=== PATIENT | female | born 1945 | race Caucasian/White ===

== ENCOUNTER → 2017-03-01 | Outpatient (CLI) | payer MEDICARE ==
[~2017-03-01] MED LIST: ALBUTEROL 3 ML 33 ML INH; ATROVENT I0.5 MG/2.5 INH; AUGMENTIN 875875 MG PO; CLARINEX-D12 HO1 T12 PO; CLARITIN10 MG PO; DOXYCYCLINE100 MG PO; DUONEB 3 MG/3 ML3 M1 INH; KROGER NIC21 MG/24 H T; LEVAQUIN500 M2 PO; MEDROL4 MG PO; MOTRIN800 MG PO; MUCINEX ER600 MG PO; NEBULIZER; PREDNISONE10 MG PO; RESTORIL15 MG PO; SINGULAIR10 MG PO; SPIRIVA RESPIMAT4 GM INH; SYMBICORT1 AE1 INH; TAMIFLU 75MG CA75 MG PO; TESSALON PERLE100 MG PO; VENTOLIN H0.09 MG/AC INH; VICODIN 5/500 505 MG PO
== END | disposition home or self-care (01) ==
LOC: MAMMO 11:26
DX: Z12.31 Encounter for screening mammogram for malignant neoplasm of breast (principal)

== ENCOUNTER 2017-09-30 07:59 | Inpatient (IN) | payer MEDICARE ==
[~2017-09-30] VITALS: Ht 172.7 cm; Wt 55.5 kg
--- NOTE | ~2017-09-30 | WRIGHTHP ---
[place], [place] PATIENT HISTORY AND PHYSICAL EXAM NAME: KASSY JAUREGUI UNIT #: [id number] ROOM: 415 DOCTOR: SATHISH JESUS MD BIRTHDATE: [birth year] DOS: 09/30/2017 HISTORY OF PRESENT ILLNESS: The patient is a 72-year-old female with a past medical history of: 1. COPD and continued nicotine abuse. 2. Nicotine smoke dependence. The patient smokes 1-2 packs of cigarettes a day. 3. History of GERD and esophagitis. 4. COPD. 5. POLLEN allergies. The patient presented to the Emergency Department with acute dizziness and vertigo starting yesterday morning. The patient said she has had this episode many years ago, but not recently. The patient felt nauseous and the room was spinning around her and she had difficulty with walking. The patient felt nauseous, but no vomiting. No chest pain or shortness of breath. No other GI or urinary symptoms. No fever. REVIEW OF SYSTEMS: LUNGS: No increasing shortness of breath. GASTROINTESTINAL: The patient did have nausea. CARDIOVASCULAR: No chest pains or palpitations. LABORATORY DATA: CT of the head without acute abnormality. CT of the abdomen and pelvis without any acute abnormality. Normal serum electrolytes. Normal CBC. IMPRESSION: 1. The patient presenting with acute vertigo and nausea, which is improving, but she still gets very dizzy off and on and is unable to ambulate with the dizziness. Antivert is helping her, but not enough. I will increase the dose and get her to work with Physical Therapy. 2. Benign positional vertigo, being treated as mentioned above. 3. Ambulatory dysfunction secondary to vertigo. The patient is working with Physical Therapy. 4. Advanced centrilobular emphysema with continued nicotine smoke dependence. The patient is on bronchodilators. 5. POLLEN allergies, treated with Singulair, asymptomatic at this time. 6. Nicotine smoke dependence. The patient encouraged to stop smoking cigarettes. [place], [place] PATIENT HISTORY AND PHYSICAL EXAM NAME: KASSY JAUREGUI UNIT #: [id number] ROOM: 415 DOCTOR: SATHISH JESUS MD BIRTHDATE: [birth year] SATHISH JESUS MD CM:HISPHYS:PATIENT HISTORY AND PHYSICAL EXAMINATION 1535 1559 SATHISH JESUS MD 10/01/17 1559 interface
--- NOTE | ~2017-09-30 | CON ---
[place], [place] REPORT OF CONSULTATION [id number] UN[facility] #: [id number] ROOM: 415 DOCTOR: ADOLFO VENEGAS MD BIRTHDATE: [birth year] DOS: 10/01/2017 GASTROENDOSCOPIC REPORT HISTORY OF PRESENT ILLNESS: A 72-year-old patient who presented with a chief complaint of nausea associated with lightheadedness and dizziness. The patient has relevant history of right ear drum perforation, which is known and she is not on any medication to be the cause of the lightheadedness and she is a pack and half smoker otherwise. She had a panel of blood work done, white blood cell was 8 and H and H of 13 and 41. Comprehensive metabolic panel, glucose 114 and GFR greater than 30. Liver function test, comprehensive metabolic panel, and all chemistry normal. Chest x-ray, no acute findings. CT scan of the head was done, no intracranial hemorrhage was reported. CT scan of the abdomen and pelvis was done, no acute inflammatory pathology, large left renal cyst. PAST MEDICAL HISTORY: Associated with COPD, gastroesophageal reflux, hypertension, and anxiety. PAST SURGICAL HISTORY: Cataract bilateral and tubal ligation. SOCIAL HISTORY: Smoker, a pack and half. Nonalcohol consumer. FAMILY HISTORY: Noncontributory. ALLERGIES: ZITHROMAX. HOME MEDICATIONS: Although, she is telling me she is not on any medication; apparently, on Tamiflu, DuoNeb, Restoril, and nebulizers. REVIEW OF SYSTEMS: HEENT: Denies double vision or blurred vision. Admits dizziness. No double vision. Right ear trauma to tympanic membrane and perforation is known. RESPIRATORY: Denies acute shortness of breath; however, chronically short of breath, issues of nicotine dependency. CARDIOVASCULAR: Denies chest pain. DIGESTIVE SYSTEM: History of gastroesophageal reflux and nausea presently. PHYSICAL EXAMINATION: VITAL SIGNS: Stable. HEENT: Head is normocephalic and nontraumatic. Eyes: Pupils are round and reactive. Sclerae nonicteric. Conjunctivae pink. NECK: Supple. No thyromegaly. No cervical lymphadenopathy. EARS: Right tympanic membrane has a perforation, which is established. LUNGS: No wheeze. No rhonchi. In general, there is decreased air entry. HEART: Normal sinus rhythm. No gallop. No murmur. ABDOMEN: Soft. No hepato-organomegaly. Bowel sounds present. No pulsatile mass. EXTREMITIES: No cyanosis. No pedal edema. NEUROLOGIC: Alert and oriented to time, place, and person. [place], [place] REPORT OF CONSULTATION NAME: KASSY JAUREGUI UNIT #: [id number] ROOM: 415 DOCTOR: ADOLFO VENEGAS MD BIRTHDATE: [birth year] IMPRESSION: Dizziness, vertigo, chronic obstructive pulmonary disease, reflux, nausea, and history of hypertension. I am not convinced if her vertigo is to a degree that we have to treat her with very large doses of Antivert and she is telling me that she is not nauseated and although she is admitting that initially she had nausea and most likely secondary to her vertigo experienced. PLAN AND DISCUSSION: I would recommend follow up with Neurology service as outpatient and she is not acutely distressed right now and I will still be considered about dysequilibrium that exists because of the perforated right tympanic membrane and she has got to a point where she is compensated. Supportive management otherwise. I have questioned her and daughter at the bedside regarding colonic screening; apparently, she is not keen in medical followups and she is proud that she has not been seen a doctor. Thank you very much indeed. ADOLFO VENEGAS MD CM:CONSTR:REPORT OF CONSULTATION 1841 10/02/17 0311 interface
--- NOTE | ~2017-09-30 | DS ---
[place], [place] DISCHARGE SUMMARY NAME: KASSY JAUREGUI UNIT #: [id number] ROOM: 415 DOCTOR: SATHISH JESUS MD BIRTHDATE: [birth year] DOS: 10/02/2017 DISCHARGE DIAGNOSES: 1. Acute benign positional vertigo with inability to ambulate, improved with treatment. 2. Nicotine smoke dependence, 1 to 2 packs of cigarettes a day. 3. Gastroesophageal reflux disease and esophagitis. 4. Chronic obstructive pulmonary disease. 5. POLLEN allergies. HOSPITAL COURSE: The patient presented to the Emergency Department with acute dizziness and vertigo along with nausea starting on the day of admission. The patient was unable to ambulate and she lives at home. The patient was also nauseous. The patient felt the room spinning around her and was unable to walk, but there was no vomiting. The patient admitted and CAT scan of her head showed no acute abnormality. The patient admitted and started on physical therapy and she had episodes of dizziness, but she gradually improved as the dose of Antivert was increased. The patient appears to be better enough that she can be discharged to home today on Antivert and to be followed up at the office by Dr. Khushboo Amaya, her PCP next week. Nicotine smoke dependence with patient smoking 1-2 packs of cigarettes a day. The patient encouraged to stop and he has agreed and she will use e-cigarettes as needed instead of smoking cigarettes. The patient says she had stopped smoking for 9 months in the past and she will try again. Centrilobular emphysema with chronic shortness of breath, stable, related to smoking cigarettes. POLLEN allergies, treated and controlled. GERD and esophagitis, treated and controlled and asymptomatic LABORATORY DATA: CT of the abdomen and head were normal. Normal serum electrolytes. Normal bilirubin and liver enzymes. DISCHARGE MANAGEMENT: Meclizine 50 mg 3 times a day as needed for dizziness, Singulair 10 mg a day, albuterol inhaler as needed, DuoNeb as needed, vitamin D as prescribed, Claritin 10 mg a day, Restoril 15 mg at night as needed. FOLLOWUP: With her PCP, Dr. Amaya next week. [place], [place] DISCHARGE SUMMARY NAME: KASSY JAUREGUI UNIT #: [id number] ROOM: 415 DOCTOR: SATHISH JESUS MDTE: [birth year] SATHISH JESUS MD CM:SHANICE [id number] SATHISH JESUS MD 10/02/17 1219 interface
[2017-09-30 08:13] VITALS: BP 107/62
[2017-09-30 08:49] LABS: BASO % 0.5 % (0.0-1.0); EOS # 0.2 10*3/uL (0.0-0.4); EOS % 2.7 % (1.0-4.0); HEMATOCRIT 40.4 % (37.0-47.0); HEMOGLOBIN 13.4 g/dl (12.0-16.0); LYMPH # 2.4 10*3/uL (1.3-4.4); LYMPH % 27.7 % (27.0-41.0); MEAN CORPUSCULAR HGB 30.5 pg (27.0-31.0); MEAN CORPUSCULAR HGB CONC 33.2 g/dl (33.0-37.0); MEAN PLATELET VOLUME 9.7 fl (9.6-12.3); MONO # 0.3 10*3/uL (0.1-1.0); MONO % 3.1 % (3.0-9.0); NEUT # 5.7 10*3/uL (2.3-7.9); NEUT % 65.8 % (47.0-73.0); PLATELET COUNT AUTOMATED 233 10*3/uL (130-400); RED BLOOD COUNT 4.39 10*6/uL (4.10-5.10); RED CELL DISTRI WIDTH 13.4 % (0-14.5); WHITE BLOOD COUNT 8.7 10*3/uL (4.8-10.8)
[2017-09-30 09:05] LABS: ALBUMIN 3.4 gm/dl (3.1-4.5); ALKALINE PHOSPHATASE 87 U/L (45-117); BUN 13 mg/dl (7-24); CHLORIDE 106 mmol/L (98-107); CREATININE 0.94 mg/dL (0.55-1.02); POTASSIUM 4.3 mmol/L (3.5-5.1); SGOT/AST 12 IU/L (3-35); SGPT/ALT 13 U/L (12-78); SODIUM 140 mmol/L (136-145); TOTAL PROTEIN 7.1 gm/dL (6.4-8.2)
[2017-09-30 09:09] LABS: TROPONIN I < 0.015 ng/ml (<0.045)
[2017-09-30] MEDS ORDERED: SINGULAIR10 M1 PO (11:52)
[2017-09-30] MEDS ORDERED: VITAMIN D50000 UNIT PO (11:55)
[2017-09-30] MEDS ORDERED: PULMICORT RESP0.5 MG INH (11:58)
[2017-09-30 12:00] VITALS: BP 112/77
[2017-09-30] MEDS ORDERED: PROAIR HFA8.5 GM INH (12:03)
[2017-09-30 16:00] VITALS: BP 122/73
[2017-10-01] VITALS: BP 102/56
[2017-10-01 05:08] VITALS: BP 112/72
[2017-10-01 08:00] VITALS: BP 104/54
[2017-10-01 12:00] VITALS: BP 110/62
[2017-10-01 16:00] VITALS: BP 103/60
[2017-10-01 20:00] VITALS: BP 112/78
[2017-10-02] VITALS: BP 102/63
[2017-10-02 08:00] VITALS: BP 125/68
[2017-10-02] MEDS ORDERED: MECLIZINE HCL25 M2 PO (11:12)
== END 2017-10-02 11:31 | disposition home or self-care (01) | DRG 149 ==
LOC: ED 07:59 → EDHOLD 10:22 → 4E 10:22
PROVIDERS: Student in an Organized Health Care Education/Training Program
DX: H81.10 Benign paroxysmal vertigo, unspecified ear (principal); J96.10 Chronic respiratory failure, unspecified whether with hypoxia or hypercapnia; J44.9 Chronic obstructive pulmonary disease, unspecified; N28.1 Cyst of kidney, acquired; R26.2 Difficulty in walking, not elsewhere classified; R73.9 Hyperglycemia, unspecified; K21.0 Gastro-esophageal reflux disease with esophagitis; J30.1 Allergic rhinitis due to pollen; F17.210 Nicotine dependence, cigarettes, uncomplicated; F41.9 Anxiety disorder, unspecified; I10 Essential (primary) hypertension; Z80.3 Family history of malignant neoplasm of breast; Z88.1 Allergy status to other antibiotic agents; Z79.899 Other long term (current) drug therapy; Z71.6 Tobacco abuse counseling; Z98.42 Cataract extraction status, left eye; Z98.41 Cataract extraction status, right eye; Z98.51 Tubal ligation status; Z82.49 Family history of ischemic heart disease and other diseases of the circulatory system; Z83.3 Family history of diabetes mellitus; Z80.0 Family history of malignant neoplasm of digestive organs

== ENCOUNTER 2017-10-21 10:17 | Inpatient (IN) | payer MEDICARE ==
[~2017-10-21] VITALS: Ht 172.7 cm; Wt 57.0 kg
--- NOTE | ~2017-10-21 | CON ---
[place], [place] REPORT OF CONSULTATION NAME: KASSY JAUREGUI [facility] #: [id number] UNIT #: [id number] ROOM: 404 DOCTOR: MEHUL ROSEN MD,CHARLEY BIRTHDATE: [birth year] DOS: 10/22/2017 REASON FOR CONSULTATION: Abnormal respiratory symptoms and finding on the CT scan of the chest. HISTORY OF PRESENT ILLNESS: This is a 72-year-old white female known to me from the past, has been admitted in 2016, and assessed at that time for acute exacerbation of chronic obstructive pulmonary disease, required therapeutic bronchoscopy. She has been admitted under care of Dr. Khushboo Amaya, yesterday. The patient reported having symptoms of increased shortness of breath ongoing for about a week with gradual worsening. She was seen in the office of Dr. Khushboo Amaya for the current symptom. She was also noted with symptoms of cough, which has been noted nonproductive for the past 3 days. Pulse oxygen saturation in the office were recorded at 80% on room air at rest. She was also noted a tightness in the chest and wheezing. The patient has been hospitalized for further medical management for acute exacerbation of COPD. She also has a previous CT scan of the chest that was done on 10/21/2017, discovered abnormal with possibility of pulmonary nodule, malignancy or others. This morning as the patient was seen, she was sitting on the bed, noted quite emotional, crying earlier. She stated persistent respiratory symptom without any major changes in the last 24 hours with current treatment. REVIEW OF SYSTEMS: CONSTITUTIONAL: Fatigue and tiredness noted on symptom fever or chills. EYES: Denies any burning, redness, tenderness. EARS, NOSE, THROAT: No sore throat, hoarseness, otalgia, postnasal drainage or epistaxis. CARDIOVASCULAR: No anginal pain, edema of the lower extremity, palpitation. GASTROINTESTINAL: Dysphagia, nausea, vomiting, diarrhea, abdominal pain, hematemesis, melena, or abnormal weight loss. GENITOURINARY: Denies urinary incontinence, has a density suprapubic pain, hematuria. MUSCULOSKELETAL: No acute joint pain, redness, or tenderness. SKIN: Denies abnormal lesions or rashes. CENTRAL NERVOUS SYSTEM: No dizziness, headache, diplopia, syncopal episodes. Remaining systems were reviewed. They were noted all negative. PAST MEDICAL HISTORY: 1. Known with history of centrilobular emphysema. 2. Chronic nicotine dependence. 3. History of allergic rhinitis. PAST SURGICAL HISTORY: 1. Tubal ligation. 2. Cataract extraction with lens implantation. SOCIAL HISTORY: The patient is , has 5 children. Smoking started since teenager, 1.5 pack of cigarettes per day with active tobacco use 1 pack of cigarettes per day noted at the present time. History of alcohol use or illicit [place], [place] REPORT OF CONSULTATION NAME: KASSY JAUREGUI UNIT #: [id number] ROOM: 404 DOCTOR: MEHUL ROSEN MD,CHARLEY BIRTHDATE: [birth year] drug use or occupation related, pulmonary exposure. FAMILY HISTORY: The patient was known with history of malignancy in some family members. MEDICATIONS: Current medication administered noted use of Solu-Medrol 30 mg every 8 hours, Singulair 10 mg daily, nicotine 14 mg patch daily, Rocephin, and vitamin D. DRUG ALLERGIES: THE PATIENT WAS NOTED ALLERGY TO THE ZITHROMAX. PHYSICAL EXAMINATION: GENERAL: A 72-year-old white female currently noted sitting on her bed without any acute distress. Height of 5 feet 8 inches, weight 125 pounds, BMI 19. VITAL SIGNS: Shows a normal temperature, respiratory rate 16-21, 75-66, blood pressure a ____92/50. Pulse oxygen saturation noted on room air as 92% saturation with 2 liters 97% saturation. HEAD, EARS, EYES, NOSE AND THROAT: Examination shows head was atraumatic. Eyes nonicterus. NECK: Supple. CARDIOVASCULAR: S1, S2 audible. LUNGS: Noted with diffuse reduction in breath sounds, expiratory wheezing, no crackles. ABDOMEN: Flat, soft, nontender, without any tenderness. Bowel sounds present. CENTRAL NERVOUS SYSTEM: Cranial nerves 2-12 intact. No focal deficit. MUSCULOSKELETAL: Without acute deformity. SKIN: No lesions or rashes. LABORATORY DATA: BMP yesterday on admission was noted completely normal. CBC on admission, WBC count 4.6, otherwise normal CBC. There CT scan of the chest that was done yesterday was personally reviewed shows changes of centrilobular emphysema as well as a panlobular emphysema changes noted in the lungs bilaterally with atypical and pleural thickening for this patient. There was no cross pulmonary nodules noted. There was no lymphadenopathy. IMPRESSION: 1. The patient was noted with recurrent acute exacerbation of chronic obstructive pulmonary disease, acute tracheobronchitis with the chronic nicotine dependence. 2. Acute hypoxic respiratory failure related to recurrent acute exacerbation of chronic obstructive pulmonary disease and bronchitis. There was no evidence of any abnormal pulmonary nodules noted. Apical pleural and parenchymal thickening. The patient is calmly and some ____ not pathological tissue. PLAN OF MANAGEMENT: Continued tobacco cessation. Continue current dose of Solu-Medrol, bronchodilators and the antibiotic therapy bronchoscopy was scheduled to be done tomorrow. The patient because severe nonproductive cough for the past one week. Removal of the mucous plug with that will be beneficial. Tobacco cessation has been discussed with the patient. Risk and the benefits of the bronchoscopy were discussed with the patient. She was agreeable for the [place], [place] REPORT OF CONSULTATION NAME: KASSY JAUREGUI UNIT #: [id number] ROOM: 404 DOCTOR: CHARLEY VICTORIA MD BIRTHDATE: [birth year] procedure, which was scheduled to be done tomorrow. N.p.o. past midnight status will be achieved. CHARLEY CARVER MD CM:CONSTR:REPORT OF CONSULTATION 1056 10/22/17 1753 interface
--- NOTE | ~2017-10-21 | EKG ---
[place], [place] ELECTROCARDIOGRAM REPORT NAME: KASSY JAUREGUI UNIT #: [id number] ROOM: 428 DOCTOR: MEHUL ROSEN MD,CHARLEY BIRTHDATE: [birth year] DOS: 10/22/2017 The electrocardiogram done for the patient on 10/22/2017 at 11:44 a.m. CONCLUSION: Normal sinus rhythm noted. Heart rate 84 beats per minute. There were no abnormal electrocardiographic finding noted. CHARLEY CARVER MD CM:EKGRPT:ELECTROCARDIOGRAM REPORT 1217 1239 CHARLEY ROSEN MD
--- NOTE | ~2017-10-21 | WRIGHTHP ---
[place], [place] PATIENT HISTORY AND PHYSICAL EXAM [id number] #: [id number] ROOM: 404 DOCTOR: ANIA PENA MD BIRTHDATE: [birth year] DOS: 10/21/2017 HISTORY OF PRESENT ILLNESS: This patient is 72 years old. The patient had a cough and shortness of breath for the last week. She was prescribed antibiotics. The patient came into the office yesterday with complaints that the patient has not had any improvement in her symptoms. She continues to cough. She denies having any chest pains, but appeared to be in respiratory distress. Pulse ox in the low 80s on room air. The patient denies having any fever or chills. She was unable to complete sentences because of increasing shortness of breath. PAST MEDICAL HISTORY: 1. Recent abnormal CT scan. 2. COPD. 3. Moderate cigarette smoker. MEDICATIONS: None. She just finished a course of antibiotics. SOCIAL HISTORY: She smokes about a pack of cigarettes a day. She works as a cook at the local school. PHYSICAL EXAMINATION: VITAL SIGNS: Blood pressure is 104/52, pulse of 75, respirations 20, temperature 97.4. LUNGS: Diminished breath sounds, scattered wheezes and rhonchi. HEART: Regular. ABDOMEN: Obese, soft, nontender. EXTREMITIES: Without any edema. ASSESSMENT AND PLAN: 1. Acute hypoxic respiratory failure. The patient has failed outpatient regimen for acute bronchitis. The patient will be admitted. 2. Acute exacerbation of chronic obstructive pulmonary disease. IV steroids have been ordered. 3. Abnormal CT scan in the past. CT of the chest will be ordered to rule out underlying malignancy pneumonia. 4. Hypotension of unknown etiology. Labs do not show any evidence of dehydration. IV fluids were ordered. Pressures have come up. Dr. Salazar has been consulted for possible bronchoscopy. [place], [place] PATIENT HISTORY AND PHYSICAL EXAM NAME: KASSY JAUREGUI UNIT #: [id number] ROOM: 404 DOCTOR: ANIA PENA MD BIRTHDATE: [birth year] ANIA PENA MD CM:HISPHYS:PATIENT HISTORY AND PHYSICAL EXAMINATION 0857 1001 ANIA PENA MD 10/22/17 1000 interface
--- NOTE | ~2017-10-21 | PROC NOTE ---
[place], [place] PROCEDURE NOTE NAME: [facility]GUI [id number] UNIT #: [id number] ROOM: 428 DOCTOR: MEHUL ROSEN MD,CHARLEY BIRTHDATE: [birth year] DOS: 10/23/2017 PREOPERATIVE DIAGNOSES: The patient with severe coughing, suspected mucus impaction in the airway with chronic obstructive pulmonary disease exacerbation. POSTOPERATIVE DIAGNOSES: Removal of multiple plugs of mucus in bronchial tree bilaterally, moderate to large from the endobronchial tree. FINDINGS: Acute tracheobronchitis. No endobronchial obstructive lesions. PROCEDURE DESCRIPTION: Informed consent was obtained for the patient. She was brought to the OR and placed in supine position. Conscious sedation administered by Anesthesia Department. After achieving proper sedation, airway introduced into the mouth. Bronchoscope advanced into the airway into the laryngeal area. Epiglottis and vocal cords were seen. Vocal moving symmetrically with movements. Bronchoscope advanced to the vocal cord and tracheal lumen showing moderate amount of thick mucus, which was suctioned out to the saulo level. Right upper, right middle, right lower, left upper, lingular lower lobe bronchi were all examined. Endobronchial plugs of the mucus, which were present, were removed with the help of normal saline wash, sent for cultures. The procedure was tolerated by the patient without difficulty or complication. Postoperative finding will be discussed with the patient later on once the patient recovers from the effects of acute sedation. CHARLEY CARVER MD CM:PROCNOTE:PROCEDURE NOTE 1230 [id number] CHARLEY ROSEN MD
--- NOTE | ~2017-10-21 | PR ---
[place], [place] PROGRESS NOTE NAME: KASSY JAUREGUI UNIT #: [id number] ROOM: 428 DOCTOR: CHARLEY VICTORIA MD BIRTHDATE: [birth year] DOS: 10/24/2017 PULMONARY FOLLOWUP SUBJECTIVE: She has been noted comfortable at this time. Bronchoscopy was completed yesterday has resulted in marked improvement and resolution of the cough for this patient. She has been planned for home discharge today as ordered by the primary care physician. OBJECTIVE: VITAL SIGNS: For the patient, which was recorded, the patient shows temperature patient noted as normal today. The respiratory rate of the patient recorded as 16, heart rate 70, blood pressure 122/75. Pulse ox saturation on room air was 93% saturation. HEENT: Examination shows no acute change. NECK: Supple. CARDIOVASCULAR: S1, S2 is audible. LUNGS: The patient was noted without any wheeze or crackles at present time. ABDOMEN: Soft, nontender. EXTREMITIES: Without any acute edema. LABORATORY DATA: Culture preliminary of the bronchial washing noted, light growth of yeast. Final culture results were pending. IMPRESSION: 1. The patient with resolving exacerbation of chronic obstructive pulmonary disease and cough. The patient is status post bronchoscopy, removal of the mucous plug with preliminary culture showing light growth of yeast. 2. Chronic nicotine dependence. PLAN OF TREATMENT: The patient was advised about tobacco cessation. Could be discharged home on tapering prednisone and oral antibiotics and other medical management. COPD with the long-term medications. [place], [place] PROGRESS NOTE NAME: KASSY JAUREGUI UNIT #: [id number] ROOM: 428 DOCTOR: CHARLEY VICTORIA MD BIRTHDATE: [birth year] CHARLEY CARVER MD CM:PNTRANS 1230 184 CHARLEY ROSEN MD 10/24/17 1841 interface
--- NOTE | ~2017-10-21 | DS ---
[place], [place] DISCHARGE SUMMARY NAME: KASSY JAUREGUI [facility] #: [id number] UNIT #: [id number] ROOM: 428 DOCTOR: ANIA PENA MD BIRTHDATE: [birth year] DOS: 10/24/2017 HOSPITAL COURSE: This patient is 72 years old, very well known to us. The patient came into the office on 10/21 with complaints of shortness of breath for several weeks' duration. She was prescribed antibiotics as an outpatient and continued to get worse. She has a cough which is productive of scant amounts of sputum and increasing shortness of breath. The patient was found to be hypoxic with a saturation of 88% on room air and so, she was admitted to the hospital. After admission, the patient had a CT of the chest which showed emphysematous changes, did not show any acute pneumonia, some scarring of the upper lungs also noted. The patient was placed on IV steroids, breathing treatments, antibiotics, consultation with Dr. Salazar was obtained. Dr. Salazar took the patient for a bronchoscopy. Bronch cultures are so far negative other than some light yeast which is most likely not of lung origin. The patient is stable and improving, so the plan is to discharge her to home today. DISCHARGE MEDICATIONS: Symbicort 80 mcg 2 puffs twice a day, Cipro 500 b.i.d. for 7 days, prednisone tapering dose, breathing treatments q. 4, Singulair 10 daily, vitamin D 50,000 units daily and Habitrol patch for smoking cessation. DIAGNOSES: 1. Acute exacerbation of chronic obstructive pulmonary disease. 2. Acute hypoxic respiratory failure. 3. Hypotension. 4. Acute tracheobronchitis, status post bronchoscopy with negative bronch cultures. 5. Moderate cigarette smoker. ANIA PENA MD CM:DISCHARG 1 ANIA PENA MD 10/24/1752 interface
--- NOTE | ~2017-10-21 | PR ---
[place], [place] PROGRESS NOTE NAME: KASSY JAUREGUI [facility] #: [id number] UNIT #: [id number] ROOM: 428 DOCTOR: ANIA PENA MD BIRTHDATE: [birth year] DOS: 10/24/2017 SUBJECTIVE: The patient states that she feels better, does complain of some minimal swelling and discomfort in the left side of her neck. She does not have any fever or chills. OBJECTIVE: VITAL SIGNS: Blood pressure is 122/75, pulse of 70, respirations 16, temperature 97.4. LUNGS: Diminished breath sounds, clear. HEART: Regular. ABDOMEN: Obese, soft. NECK: Small submandibular lymph gland notice, some minimally tender. EXTREMITIES: Without any edema. LABORATORY DATA: Routine culture of the bronch specimen shows light yeast with normal werner. ASSESSMENT AND PLAN: 1. Acute exacerbation of chronic obstructive pulmonary disease, improving bronchospasm seems to have resolved. 2. Acute tracheobronchitis, status post bronchoscopy with negative cultures except for yeast. 3. Moderate cigarette smoker. She decided to quit smoking and requested a prescription for patches. The patient is stable. The plan is to discharge her to home today. Follow up as an outpatient. ANIA PENA MD CM:PNTRANS ANIA PENA MD 10/24/17 0954 interface
--- NOTE | ~2017-10-21 | PR ---
[place], [place] PROGRESS NOTE NAME: KASSY JAUREGUI [facility] #: [id number] UNIT #: [id number] ROOM: 428 DOCTOR: MEHUL ROSEN MD,CHARLEY BIRTHDATE: [birth year] DOS: 10/23/2017 SUBJECTIVE: The patient was noted n.p.o. past midnight for bronchoscopy, still noted similar symptoms of severe cough, wheezing, chest tightness and at times chest pain secondary to cough. She denies symptoms of headache, nausea, vomiting, diarrhea or abdominal pain. Denies any postnasal drainage. Denies any symptoms of syncope. Remaining system review were noted as negative. OBJECTIVE: VITAL SIGNS: For the patient, which has been recorded shows the temperature noted as normal, the respiratory rate 18, heart rate of 89, blood pressure 124/56. The pulse oxygen saturation recorded as 94% on room air. HEENT: No acute change. NECK: Supple. CARDIOVASCULAR: S1, S2 is audible. LUNGS: Noted without any crackles. Diffuse expiratory wheezing remains unchanged. ABDOMEN: Soft, nontender. Bowel sounds present. EXTREMITIES: Noted without any acute edema. VISIBLE SKIN: No lesions or rashes. MUSCULOSKELETAL: No deformities. CENTRAL NERVOUS SYSTEM: Remains intact. IMPRESSION: The patient has been noted with ongoing severe exacerbation of chronic obstructive pulmonary disease, acute tracheobronchitis, suspected mucus impaction, gross pulmonary scarring in the upper lung may not be of any clinical significance. PLAN OF MANAGEMENT: Continuation of the patient's current therapy at this time as in progress. Proceed with the bronchoscopy today. Any modification in treatment as necessary will be done after the completion of bronchoscopy. Usual care, other plan of management and care. CHARLEY CARVER MD CM:PNTRANS [id number] CHARLEY ROSEN MD 10/23/17 2353 interface
--- NOTE | ~2017-10-21 | PR ---
[place], [place] PROGRESS NOTE NAME: KASSY JAUREGUI [facility] #: [id number] UNIT #: [id number] ROOM: 428 DOCTOR: SATHISH JESUS MD BIRTHDATE: [birth year] DOS: 10/23/2017 SUBJECTIVE: The patient is still complaining of shortness of breath. PHYSICAL EXAMINATION: GENERAL APPEARANCE: The patient is alert and oriented x 3, in no visible distress. VITAL SIGNS: Blood pressure 127/64, heart rate of 80 beats per minute, breathing 18 times per minute, temperature 98 degrees Fahrenheit. HEENT AND NECK: Exam within normal limits. CARDIOVASCULAR SYSTEM: Heart rate is regular in rate and rhythm. S1 and S2 normally audible. LUNGS: Decreased breath sounds all over. ABDOMEN: Soft, nontender. No obvious organomegaly. Bowel sounds are present. EXTREMITIES: Generalized weakness. IMPRESSION: 1. The patient is with acute hypoxic respiratory failure and acute exacerbation of COPD, being treated with corticosteroids, oxygen, antibiotics and patient is being followed closely. 2. CT of the chest showed significant emphysema and apical pleural parenchymal scarring. No pulmonary emboli were seen and no signs of pneumonia. 3. Hypotension. Blood pressures have normalized. 4. Nicotine smoke dependence. The patient was encouraged to stop smoking cigarettes. SATHISH JESUS MD CM:PNTRANS [id number] SATHISH JESUS MD 10/23/171956 interface
[~2017-10-21 10:17] MED LIST changes: +MECLIZINE HCL25 M2 PO; +PROAIR HFA8.5 GM INH; +PULMICORT RESP0.5 MG INH; +SINGULAIR10 M1 PO; +VITAMIN D50000 UNIT PO
[2017-10-21 10:40] VITALS: BP 111/73
[2017-10-21 10:50] VITALS: BP 111/73
[2017-10-21 12:00] VITALS: BP 120/65
[2017-10-21 12:16] LABS: BASO % 0.2 % (0.0-1.0); EOS % 0.9 % (1.0-4.0); HEMATOCRIT 39.5 % (37.0-47.0); HEMOGLOBIN 13.1 g/dl (12.0-16.0); LYMPH # 1.3 10*3/uL (1.3-4.4); LYMPH % 28.1 % (27.0-41.0); MEAN CELL VOLUME 92.3 fl (81.0-99.0); MEAN CORPUSCULAR HGB 30.6 pg (27.0-31.0); MEAN CORPUSCULAR HGB CONC 33.2 g/dl (33.0-37.0); MEAN PLATELET VOLUME 9.5 fl (9.6-12.3); MONO # 0.6 10*3/uL (0.1-1.0); MONO % 13.2 % (3.0-9.0); NEUT # 2.7 10*3/uL (2.3-7.9); NEUT % 57.2 % (47.0-73.0); PLATELET COUNT AUTOMATED 165 10*3/uL (130-400); RED BLOOD COUNT 4.28 10*6/uL (4.10-5.10); RED CELL DISTRI WIDTH 13.7 % (0-14.5); WHITE BLOOD COUNT 4.6 10*3/uL (4.8-10.8)
[2017-10-21 12:26] LABS: BUN 9 mg/dl (7-24); CHLORIDE 101 mmol/L (98-107); POTASSIUM 3.9 mmol/L (3.5-5.1); SODIUM 136 mmol/L (136-145)
[2017-10-21 16:00] VITALS: BP 103/60
[2017-10-21 20:00] VITALS: BP 94/49
[2017-10-22] VITALS (7 sets, daily range): BP systolic 76–111; BP diastolic 42–56
[2017-10-22 10:15] LABS: ACT PARTIAL THROMBO TIME 24.7 SECONDS (20.8-31.5)
[2017-10-23] VITALS (9 sets, daily range): BP systolic 90–127; BP diastolic 43–70
[2017-10-24] VITALS: BP 111/56
[2017-10-24 08:00] VITALS: BP 122/75
[2017-10-24] MEDS ORDERED: PREDNISONE5 MG PO (08:43)
[2017-10-24] MEDS ORDERED: CIPRO500 MG PO (08:43)
[2017-10-24] MEDS ORDERED: SYMB80 INH (08:47)
[2017-10-24 16:09] LABS: ACID FAST SMEAR Negative (.); ACID FAST SPEC PROCESSING Concentration (.)
== END 2017-10-24 09:45 | disposition home or self-care (01) | DRG 189 ==
LOC: 4E 10:17
PROVIDERS: Internal Medicine; Internal Medicine Critical Care Medicine
PROC: 0BC58ZZ Extirpation of Matter from Right Middle Lobe Bronchus, Via Natural or Artificial Opening Endoscopic (ICD-10-PCS; principal; 2017-10-23)
PROC: 0BCB8ZZ Extirpation of Matter from Left Lower Lobe Bronchus, Via Natural or Artificial Opening Endoscopic (ICD-10-PCS; principal; 2017-10-23)
PROC: 0BC38ZZ Extirpation of Matter from Right Main Bronchus, Via Natural or Artificial Opening Endoscopic (ICD-10-PCS; principal; 2017-10-23)
PROC: 0BC18ZZ Extirpation of Matter from Trachea, Via Natural or Artificial Opening Endoscopic (ICD-10-PCS; principal; 2017-10-23)
PROC: 0BC48ZZ Extirpation of Matter from Right Upper Lobe Bronchus, Via Natural or Artificial Opening Endoscopic (ICD-10-PCS; principal; 2017-10-23)
PROC: 0BC88ZZ Extirpation of Matter from Left Upper Lobe Bronchus, Via Natural or Artificial Opening Endoscopic (ICD-10-PCS; principal; 2017-10-23)
PROC: 0BC98ZZ Extirpation of Matter from Lingula Bronchus, Via Natural or Artificial Opening Endoscopic (ICD-10-PCS; principal; 2017-10-23)
PROC: 0BC78ZZ Extirpation of Matter from Left Main Bronchus, Via Natural or Artificial Opening Endoscopic (ICD-10-PCS; principal; 2017-10-23)
PROC: 0BC68ZZ Extirpation of Matter from Right Lower Lobe Bronchus, Via Natural or Artificial Opening Endoscopic (ICD-10-PCS; principal; 2017-10-23)
DX: J96.01 Acute respiratory failure with hypoxia (principal); T17.590A Other foreign object in bronchus causing asphyxiation, initial encounter; T17.490A Other foreign object in trachea causing asphyxiation, initial encounter; I95.9 Hypotension, unspecified; J44.1 Chronic obstructive pulmonary disease with (acute) exacerbation; J44.0 Chronic obstructive pulmonary disease with (acute) lower respiratory infection; F17.210 Nicotine dependence, cigarettes, uncomplicated; X58.XXXA Exposure to other specified factors, initial encounter; Z98.51 Tubal ligation status; Z98.49 Cataract extraction status, unspecified eye; Z80.8 Family history of malignant neoplasm of other organs or systems; Y93.89 Activity, other specified; Y92.89 Other specified places as the place of occurrence of the external cause; Y99.8 Other external cause status; Z71.6 Tobacco abuse counseling

== ENCOUNTER → 2018-01-06 | Outpatient (CLI) | payer MEDICARE ==
[~2018-01-06] MED LIST changes: +CIPRO500 MG PO; +PREDNISONE5 MG PO; +SYMB80 INH
[2018-01-06 09:26] LABS: BASO % 0.7 % (0.0-1.0); EOS # 0.6 10*3/uL (0.0-0.4); EOS % 10.1 % (1.0-4.0); HEMATOCRIT 39.6 % (37.0-47.0); HEMOGLOBIN 12.5 g/dl (12.0-16.0); LYMPH # 2.2 10*3/uL (1.3-4.4); LYMPH % 39.4 % (27.0-41.0); MEAN CELL VOLUME 95.7 fl (81.0-99.0); MEAN CORPUSCULAR HGB 30.2 pg (27.0-31.0); MEAN CORPUSCULAR HGB CONC 31.6 g/dl (33.0-37.0); MEAN PLATELET VOLUME 9.9 fl (9.6-12.3); MONO # 0.4 10*3/uL (0.1-1.0); MONO % 7.2 % (3.0-9.0); NEUT # 2.4 10*3/uL (2.3-7.9); NEUT % 42.4 % (47.0-73.0); PLATELET COUNT AUTOMATED 186 10*3/uL (130-400); RED BLOOD COUNT 4.14 10*6/uL (4.10-5.10); RED CELL DISTRI WIDTH 13.6 % (0-14.5); WHITE BLOOD COUNT 5.6 10*3/uL (4.8-10.8)
[2018-01-06 09:41] LABS: ALBUMIN 3.4 gm/dl (3.1-4.5); ALKALINE PHOSPHATASE 83 U/L (45-117); BILIRUBIN, DIRECT < 0.1 mg/dL (0.0-0.2); SGOT/AST 21 IU/L (3-35); SGPT/ALT 25 U/L (12-78)
== END | disposition home or self-care (01) ==
LOC: LAB 08:55
PROVIDERS: Internal Medicine Critical Care Medicine
DX: Z79.899 Other long term (current) drug therapy (principal)

== ENCOUNTER 2018-03-09 18:38 | Emergency (ER) | payer MEDICARE ==
[~2018-03-09] VITALS: Ht 172.7 cm; Wt 59.0 kg
[2018-03-09 19:16] LABS: BASO % 0.5 % (0.0-1.0); EOS # 0.3 10*3/uL (0.0-0.4); EOS % 5.1 % (1.0-4.0); HEMATOCRIT 35.6 % (37.0-47.0); HEMOGLOBIN 11.8 g/dl (12.0-16.0); LYMPH # 1.9 10*3/uL (1.3-4.4); LYMPH % 28.8 % (27.0-41.0); MEAN CELL VOLUME 93.2 fl (81.0-99.0); MEAN CORPUSCULAR HGB 30.9 pg (27.0-31.0); MEAN CORPUSCULAR HGB CONC 33.1 g/dl (33.0-37.0); MEAN PLATELET VOLUME 9.7 fl (9.6-12.3); MONO # 0.5 10*3/uL (0.1-1.0); MONO % 7.7 % (3.0-9.0); NEUT # 3.8 10*3/uL (2.3-7.9); NEUT % 57.6 % (47.0-73.0); PLATELET COUNT AUTOMATED 176 10*3/uL (130-400); RED BLOOD COUNT 3.82 10*6/uL (4.10-5.10); WHITE BLOOD COUNT 6.5 10*3/uL (4.8-10.8)
[2018-03-09 19:27] LABS: ACT PARTIAL THROMBO TIME 23.8 SECONDS (20.8-31.5)
[2018-03-09 19:33] LABS: ALBUMIN 3.2 gm/dl (3.1-4.5); ALKALINE PHOSPHATASE 62 U/L (45-117); BUN 12 mg/dl (7-24); CHLORIDE 108 mmol/L (98-107); CREATININE 0.89 mg/dL (0.55-1.02); POTASSIUM 4.3 mmol/L (3.5-5.1); SGOT/AST 14 IU/L (3-35); SGPT/ALT 13 U/L (12-78); SODIUM 141 mmol/L (136-145); TOTAL PROTEIN 6.2 gm/dL (6.4-8.2)
[2018-03-09 19:35] LABS: TROPONIN I < 0.015 ng/ml (<0.045)
== END 2018-03-09 20:23 | disposition home or self-care (01) ==
LOC: ED 18:38
PROVIDERS: Student in an Organized Health Care Education/Training Program
DX: R42 Dizziness and giddiness (principal); R11.10 Vomiting, unspecified; K21.9 Gastro-esophageal reflux disease without esophagitis; J44.9 Chronic obstructive pulmonary disease, unspecified; I10 Essential (primary) hypertension; Z88.1 Allergy status to other antibiotic agents; Z79.899 Other long term (current) drug therapy; Z87.891 Personal history of nicotine dependence

== ENCOUNTER → 2018-08-19 | Outpatient (CLI) | payer MEDICARE | END | disposition home or self-care (01) | LOC: RESCLI 14:18 | DX: Z23 Encounter for immunization (principal); Z79.899 Other long term (current) drug therapy ==

== ENCOUNTER → 2019-02-20 | Outpatient (CLI) | payer MEDICARE | END | disposition home or self-care (01) | LOC: CT 10:42 | DX: J43.8 Other emphysema (principal); I25.10 Atherosclerotic heart disease of native coronary artery without angina pectoris ==

== ENCOUNTER → 2019-07-03 | Outpatient (CLI) | payer MEDICARE ==
[2019-07-03 10:46] LABS: BASO % 0.5 % (0.0-1.0); EOS # 0.3 10*3/uL (0.0-0.4); EOS % 5.7 % (1.0-4.0); HEMATOCRIT 39.7 % (37.0-47.0); HEMOGLOBIN 12.6 g/dl (12.0-16.0); LYMPH # 2.3 10*3/uL (1.3-4.4); LYMPH % 41.2 % (27.0-41.0); MEAN CELL VOLUME 93.9 fl (81.0-99.0); MEAN CORPUSCULAR HGB 29.8 pg (27.0-31.0); MEAN CORPUSCULAR HGB CONC 31.7 g/dl (33.0-37.0); MEAN PLATELET VOLUME 9.3 fl (9.6-12.3); MONO # 0.5 10*3/uL (0.1-1.0); NEUT # 2.5 10*3/uL (2.3-7.9); NEUT % 44.4 % (47.0-73.0); PLATELET COUNT AUTOMATED 243 10*3/uL (130-400); RED BLOOD COUNT 4.23 10*6/uL (4.10-5.10); RED CELL DISTRI WIDTH 13.1 % (0-14.5); WHITE BLOOD COUNT 5.7 10*3/uL (4.8-10.8)
[2019-07-03 11:11] LABS: ALBUMIN 3.2 gm/dl (3.1-4.5); ALKALINE PHOSPHATASE 82 U/L (45-117); BUN 10 mg/dl (7-24); CHLORIDE 107 mmol/L (98-107); CHOLESTEROL 229 mg/dL (<200); CREATININE 0.92 mg/dL (0.55-1.02); FREE T4 0.94 ng/dl (0.76-1.46); HDL CHOLESTEROL 35 mg/dl (40-60); LDL CHOLESTEROL 163 mg/dL (9-159); POTASSIUM 3.9 mmol/L (3.5-5.1); SGOT/AST 10 IU/L (3-35); SGPT/ALT 17 U/L (12-78); SODIUM 140 mmol/L (136-145); TOTAL PROTEIN 7.3 gm/dL (6.4-8.2); TRIGLYCERIDES 154 mg/dl (<150); VLDL CHOLESTEROL 31 mg/dL (6-40)
[2019-07-03 12:25] LABS: VITAMIN D, 25-HYDROXY 19.2 ng/mL (30-100)
== END | disposition home or self-care (01) ==
LOC: US 06-30 13:30 → RAD 07-02 11:00 → US 10:00
PROVIDERS: Internal Medicine
DX: M85.88 Other specified disorders of bone density and structure, other site (principal); Z13.1 Encounter for screening for diabetes mellitus; Z13.21 Encounter for screening for nutritional disorder; Z13.220 Encounter for screening for lipoid disorders; I10 Essential (primary) hypertension; E55.9 Vitamin D deficiency, unspecified; Z78.0 Asymptomatic menopausal state; Z87.891 Personal history of nicotine dependence

== ENCOUNTER 2020-02-16 16:16 | Emergency (ER) | payer MEDICARE ==
[~2020-02-16] VITALS: Ht 172.7 cm; Wt 65.8 kg
[2020-02-16] MEDS ORDERED: PREDNISONE20 M1 PO (17:01)
== END 2020-02-16 17:04 | disposition home or self-care (01) ==
LOC: ED 16:16
DX: L23.7 Allergic contact dermatitis due to plants, except food (principal); J44.9 Chronic obstructive pulmonary disease, unspecified; Z88.1 Allergy status to other antibiotic agents; Z79.899 Other long term (current) drug therapy; Z87.891 Personal history of nicotine dependence

== ENCOUNTER → 2020-02-18 | Outpatient (CLI) | payer MEDICARE ==
[~2020-02-18] MED LIST changes: +PREDNISONE20 M1 PO
== END | disposition home or self-care (01) ==
LOC: CT 14:00
DX: R91.1 Solitary pulmonary nodule (principal)

== ENCOUNTER → 2021-04-17 | Outpatient (CLI) | payer MEDICARE ==
[2021-04-17 07:28] LABS: BASO % 0.3 % (0.0-1.0); EOS # 0.3 10*3/uL (0.0-0.4); HEMATOCRIT 39.8 % (37.0-47.0); LYMPH # 2.8 10*3/uL (1.3-4.4); LYMPH % 44.9 % (27.0-41.0); MEAN CELL VOLUME 91.7 fl (81.0-99.0); MEAN CORPUSCULAR HGB 28.8 pg (27.0-31.0); MEAN CORPUSCULAR HGB CONC 31.4 g/dl (33.0-37.0); MEAN PLATELET VOLUME 9.6 fl (9.6-12.3); MONO # 0.5 10*3/uL (0.1-1.0); MONO % 8.5 % (3.0-9.0); NEUT # 2.6 10*3/uL (2.3-7.9); PLATELET COUNT AUTOMATED 239 10*3/uL (130-400); RED BLOOD COUNT 4.34 10*6/uL (4.10-5.10); RED CELL DISTRI WIDTH 13.9 % (0-14.5); WHITE BLOOD COUNT 6.2 10*3/uL (4.8-10.8)
[2021-04-17 07:44] LABS: ALBUMIN 3.3 gm/dl (3.1-4.5); ALKALINE PHOSPHATASE 98 U/L (45-117); BUN 11 mg/dl (7-24); CHLORIDE 107 mmol/L (98-107); CHOLESTEROL 222 mg/dL (<200); CREATININE 0.93 mg/dL (0.55-1.02); FREE T4 0.81 ng/dl (0.76-1.46); LDL CHOLESTEROL 143 mg/dL (9-159); POTASSIUM 3.7 mmol/L (3.5-5.1); SGOT/AST 12 IU/L (3-35); SGPT/ALT 15 U/L (12-78); SODIUM 140 mmol/L (136-145); TOTAL PROTEIN 6.8 gm/dL (6.4-8.2); TRIGLYCERIDES 238 mg/dl (<150)
[2021-04-17 09:40] LABS: VITAMIN D, 25-HYDROXY 30.2 ng/mL (30-100)
[2021-04-17 12:14] LABS: BILIRUBIN Negative (Negative); BLOOD Negative (Negative); CLARITY Clear (Clear); COLOR Yellow (Yellow); GLUCOSE Negative (Negative); KETONE Negative (Negative); LEUKO ESTERASE 3+ (Negative); NITRITE Negative (Negative); PH 5.5 (4.5-8.0); SPECIFIC GRAVITY 1.015 (1.001-1.030); UROBILINOGEN 0.2 E.U./dl (0.0-1.0)
[2021-04-17 13:02] LABS: BACTERIA 3+; WBC 21-30 wbc/hpf (0-5)
== END | disposition home or self-care (01) ==
LOC: LAB 07:08
PROVIDERS: ATTEND Internal Medicine
DX: Z13.0 Encounter for screening for diseases of the blood and blood-forming organs and certain disorders involving the immune mechanism (principal); Z13.1 Encounter for screening for diabetes mellitus; Z13.220 Encounter for screening for lipoid disorders; I10 Essential (primary) hypertension; E78.2 Mixed hyperlipidemia; D52.9 Folate deficiency anemia, unspecified; D51.9 Vitamin B12 deficiency anemia, unspecified; R70.0 Elevated erythrocyte sedimentation rate; R79.82 Elevated C-reactive protein (CRP); R74.8 Abnormal levels of other serum enzymes; R79.89 Other specified abnormal findings of blood chemistry; R53.81 Other malaise; E55.9 Vitamin D deficiency, unspecified; E03.9 Hypothyroidism, unspecified

== ENCOUNTER 2021-08-24 19:14 | Emergency (ER) | payer MEDICARE ==
[~2021-08-24] VITALS: Ht 172.7 cm; Wt 68.0 kg
[2021-08-24] MEDS ORDERED: IBUPROFEN600 MG PO (20:16)
[2021-08-24] MEDS ORDERED: HYDROCODONE-AC1 EAC1 PO (20:16)
== END 2021-08-24 21:45 | disposition home or self-care (01) ==
LOC: ED 19:14
DX: S52.502A Unspecified fracture of the lower end of left radius, initial encounter for closed fracture (principal); S52.602A Unspecified fracture of lower end of left ulna, initial encounter for closed fracture; F17.200 Nicotine dependence, unspecified, uncomplicated; Z88.1 Allergy status to other antibiotic agents; Z79.899 Other long term (current) drug therapy; W18.39XA Other fall on same level, initial encounter; Y93.89 Activity, other specified; Y92.89 Other specified places as the place of occurrence of the external cause; Y99.8 Other external cause status

== ENCOUNTER → 2021-08-29 | Outpatient (CLI) | payer MEDICARE ==
[~2021-08-29] MED LIST changes: +HYDROCODONE-AC1 EAC1 PO; +IBUPROFEN600 MG PO
[2021-08-29 09:01] LABS: BASO % 0.3 % (0.0-1.0); EOS # 0.3 10*3/uL (0.0-0.4); EOS % 4.9 % (1.0-4.0); HEMATOCRIT 38.2 % (37.0-47.0); LYMPH # 2.6 10*3/uL (1.3-4.4); LYMPH % 44.2 % (27.0-41.0); MEAN CELL VOLUME 90.7 fl (81.0-99.0); MEAN CORPUSCULAR HGB 29.2 pg (27.0-31.0); MEAN CORPUSCULAR HGB CONC 32.2 g/dl (33.0-37.0); MEAN PLATELET VOLUME 9.7 fl (9.6-12.3); MONO # 0.5 10*3/uL (0.1-1.0); MONO % 7.8 % (3.0-9.0); NEUT # 2.5 10*3/uL (2.3-7.9); NEUT % 42.5 % (47.0-73.0); PLATELET COUNT AUTOMATED 244 10*3/uL (130-400); RED BLOOD COUNT 4.21 10*6/uL (4.10-5.10); RED CELL DISTRI WIDTH 13.7 % (0-14.5); WHITE BLOOD COUNT 5.9 10*3/uL (4.8-10.8)
== END | disposition home or self-care (01) ==
LOC: LAB 08:42
PROVIDERS: ATTEND Obstetrics & Gynecology Female Pelvic Medicine and Reconstructive Surgery
DX: N81.6 Rectocele (principal); N81.11 Cystocele, midline; R33.9 Retention of urine, unspecified

== ENCOUNTER → 2021-09-01 | Outpatient (CLI) | payer MEDICARE | END | disposition home or self-care (01) | LOC: ORTHO 00:49 | PROVIDERS: ATTEND Orthopaedic Surgery | DX: S52.532D Colles' fracture of left radius, subsequent encounter for closed fracture with routine healing (principal); X58.XXXD Exposure to other specified factors, subsequent encounter ==

== ENCOUNTER → 2021-09-11 | Outpatient (CLI) | payer MEDICARE | END | disposition home or self-care (01) | LOC: ORTHO 01:08 | PROVIDERS: ATTEND Orthopaedic Surgery | DX: S52.532D Colles' fracture of left radius, subsequent encounter for closed fracture with routine healing (principal); X58.XXXD Exposure to other specified factors, subsequent encounter ==

== ENCOUNTER → 2021-09-13 | Outpatient (CLI) | payer MEDICARE ==
[2021-09-13 16:08] LABS: BUN 10 mg/dl (7-24); CHLORIDE 106 mmol/L (98-107); CREATININE 0.82 mg/dL (0.55-1.02); POTASSIUM 3.9 mmol/L (3.5-5.1); SODIUM 139 mmol/L (136-145)
== END | disposition home or self-care (01) ==
LOC: LAB 14:12
PROVIDERS: ATTEND Obstetrics & Gynecology Female Pelvic Medicine and Reconstructive Surgery
DX: N81.4 Uterovaginal prolapse, unspecified (principal); N81.6 Rectocele; R33.9 Retention of urine, unspecified

== ENCOUNTER → 2021-09-25 | Outpatient (CLI) | payer MEDICARE | END | disposition home or self-care (01) | LOC: ORTHO 07:58 | PROVIDERS: ATTEND Orthopaedic Surgery | DX: M19.032 Primary osteoarthritis, left wrist (principal); M25.78 Osteophyte, vertebrae; S52.532D Colles' fracture of left radius, subsequent encounter for closed fracture with routine healing; X58.XXXD Exposure to other specified factors, subsequent encounter ==

== ENCOUNTER → 2021-10-09 | Outpatient (CLI) | payer MEDICARE | END | disposition home or self-care (01) | LOC: ORTHO 02:21 | PROVIDERS: ATTEND Orthopaedic Surgery | DX: S52.532D Colles' fracture of left radius, subsequent encounter for closed fracture with routine healing (principal); X58.XXXD Exposure to other specified factors, subsequent encounter ==

== ENCOUNTER → 2021-12-19 | Outpatient (CLI) | payer MEDICARE | END | disposition home or self-care (01) | LOC: RAD 12-14 14:00 | PROVIDERS: ATTEND Internal Medicine | DX: M85.88 Other specified disorders of bone density and structure, other site (principal); M81.0 Age-related osteoporosis without current pathological fracture ==

== ENCOUNTER → 2022-10-23 | Outpatient (CLI) | payer MEDICARE | END | disposition home or self-care (01) | LOC: RESCLI 15:29 | PROVIDERS: ATTEND Internal Medicine | DX: J01.90 Acute sinusitis, unspecified (principal); J44.9 Chronic obstructive pulmonary disease, unspecified; F32.9 Major depressive disorder, single episode, unspecified; Z88.8 Allergy status to other drugs, medicaments and biological substances; Z98.890 Other specified postprocedural states; Z87.891 Personal history of nicotine dependence; Z90.710 Acquired absence of both cervix and uterus; Z79.899 Other long term (current) drug therapy ==

== ENCOUNTER 2023-03-25 23:34 | Emergency (ER) | payer MEDICARE ==
[~2023-03-25] VITALS: Ht 172.7 cm; Wt 68.5 kg
[2023-03-26] MEDS ORDERED: SPIRIVA RESPIMAT4 GM INH (00:51)
[2023-03-26 01:42] LABS: BASO % 0.4 % (0.0-1.0); EOS # 0.2 10*3/uL (0.0-0.4); EOS % 2.8 % (1.0-4.0); LYMPH # 1.7 10*3/uL (1.3-4.4); LYMPH % 23.9 % (27.0-41.0); MEAN CELL VOLUME 90.3 fl (81.0-99.0); MEAN CORPUSCULAR HGB 29.7 pg (27.0-31.0); MEAN CORPUSCULAR HGB CONC 32.9 g/dl (33.0-37.0); MEAN PLATELET VOLUME 10.1 fl (9.6-12.3); MONO # 0.5 10*3/uL (0.1-1.0); MONO % 6.8 % (3.0-9.0); NEUT # 4.7 10*3/uL (2.3-7.9); NEUT % 65.7 % (47.0-73.0); PLATELET COUNT AUTOMATED 206 10*3/uL (130-400); RED BLOOD COUNT 4.21 10*6/uL (4.10-5.10); RED CELL DISTRI WIDTH 14.2 % (0-14.5); WHITE BLOOD COUNT 7.1 10*3/uL (4.8-10.8)
[2023-03-26 02:04] LABS: ALKALINE PHOSPHATASE 85 U/L (46-116); BUN 12 mg/dl (9-23); CHLORIDE 107 mmol/L (98-107); POTASSIUM 3.9 mmol/L (3.4-5.1); TOTAL PROTEIN 6.9 gm/dL (6.0-8.0)
[2023-03-26 02:05] LABS: SGPT/ALT < 7 U/L (10-49)
[2023-03-26] MEDS ORDERED: DRAMAMINE LESS25 MG PO (03:44)
== END 2023-03-26 03:54 | disposition home or self-care (01) ==
LOC: ED 23:34
PROVIDERS: Emergency Medicine
DX: R42 Dizziness and giddiness (principal); J44.9 Chronic obstructive pulmonary disease, unspecified; K21.9 Gastro-esophageal reflux disease without esophagitis; I10 Essential (primary) hypertension; R73.9 Hyperglycemia, unspecified; Z88.1 Allergy status to other antibiotic agents; Z88.8 Allergy status to other drugs, medicaments and biological substances; Z98.51 Tubal ligation status; Z98.890 Other specified postprocedural states; F17.200 Nicotine dependence, unspecified, uncomplicated

== ENCOUNTER → 2023-06-17 | Outpatient (CLI) | payer MEDICARE ==
[~2023-06-17] MED LIST changes: +DRAMAMINE LESS25 MG PO
[2023-06-17 09:53] LABS: BILIRUBIN Negative (Negative); BLOOD Trace-Lysed (Negative); CLARITY Clear (Clear); COLOR Yellow (Yellow); GLUCOSE Negative (Negative); KETONE Negative (Negative); LEUKO ESTERASE 2+ (Negative); NITRITE Negative (Negative); PH 5.5 (4.5-8.0); UROBILINOGEN 0.2 E.U./dl (0.0-1.0)
[2023-06-17 10:00] LABS: WBC 16-20 wbc/hpf (0-5)
[2023-06-17 10:01] LABS: BACTERIA 4+; RBC 0-2 rbc/hpf (0-2)
== END | disposition home or self-care (01) ==
LOC: LAB 09:27
PROVIDERS: ATTEND Family Medicine
DX: R30.0 Dysuria (principal)

== ENCOUNTER → 2024-05-26 | Outpatient (CLI) | payer MEDICARE | END | disposition home or self-care (01) | LOC: RESCLI 02:19 | PROVIDERS: ATTEND Internal Medicine | DX: J44.9 Chronic obstructive pulmonary disease, unspecified (principal); Z01.89 Encounter for other specified special examinations; E78.5 Hyperlipidemia, unspecified; R73.9 Hyperglycemia, unspecified; N18.9 Chronic kidney disease, unspecified; E55.9 Vitamin D deficiency, unspecified; E53.8 Deficiency of other specified B group vitamins; M85.80 Other specified disorders of bone density and structure, unspecified site; Z87.891 Personal history of nicotine dependence; Z88.8 Allergy status to other drugs, medicaments and biological substances; Z98.890 Other specified postprocedural states; Z90.710 Acquired absence of both cervix and uterus; Z79.899 Other long term (current) drug therapy ==

== ENCOUNTER 2024-06-06 20:40 | Emergency (ER) | payer OTHER, MEDICARE ==
[~2024-06-06] VITALS: Ht 172.7 cm; Wt 68.0 kg
[2024-06-06] MEDS ORDERED: Acetaminophen/Oxycodone 5 MG/325 MG TABLET PO ONE (22:50)
[2024-06-07] MEDS ORDERED: [UNRECOGNIZED DRUG - OTHER] PO ONE (02:55)
[2024-06-07] MEDS ORDERED: Acetaminophen/Hydrocodone Bi 3 TAB PACK PO PRN (02:55)
== END 2024-06-07 02:52 | disposition home or self-care (01) ==
LOC: ED 20:40
DX: R51.9 Headache, unspecified (principal); J44.9 Chronic obstructive pulmonary disease, unspecified; F17.200 Nicotine dependence, unspecified, uncomplicated; Z88.1 Allergy status to other antibiotic agents; Z98.51 Tubal ligation status; Z98.890 Other specified postprocedural states; V49.9XXA Car occupant (driver) (passenger) injured in unspecified traffic accident, initial encounter; Y93.89 Activity, other specified; Y92.410 Unspecified street and highway as the place of occurrence of the external cause; Y99.8 Other external cause status

== ENCOUNTER → 2024-06-25 | Outpatient (CLI) | payer MEDICARE ==
[2024-06-25 10:41] LABS: BASO % 0.3 % (0.0-1.0); EOS # 0.3 10*3/uL (0.0-0.4); EOS % 5.3 % (1.0-4.0); HEMATOCRIT 41.5 % (37.0-47.0); LYMPH # 1.8 10*3/uL (1.3-4.4); LYMPH % 30.4 % (27.0-41.0); MEAN CELL VOLUME 92.6 fl (81.0-99.0); MEAN CORPUSCULAR HGB CONC 31.3 g/dl (33.0-37.0); MONO # 0.5 10*3/uL (0.1-1.0); NEUT # 3.3 10*3/uL (2.3-7.9); NEUT % 55.7 % (47.0-73.0); PLATELET COUNT AUTOMATED 226 10*3/uL (130-400); RED BLOOD COUNT 4.48 10*6/uL (4.10-5.10); RED CELL DISTRI WIDTH 13.9 % (0-14.5); WHITE BLOOD COUNT 5.9 10*3/uL (4.8-10.8)
[2024-06-25 11:07] LABS: ALKALINE PHOSPHATASE 92 U/L (46-116); BUN 9 mg/dl (9-23); CHLORIDE 106 mmol/L (98-107); CHOLESTEROL 248 mg/dL (<200); LDL CHOLESTEROL 169 mg/dL (9-159); POTASSIUM 4.3 mmol/L (3.4-5.1); TOTAL PROTEIN 6.9 gm/dL (6.0-8.0); TRIGLYCERIDES 230 mg/dl (<150); VITAMIN D, 25-HYDROXY 34.4 ng/mL (30-100)
[2024-06-25 11:10] LABS: URINE CREATININE RANDOM 79.93 mg/dL
[2024-06-25 11:15] LABS: SGPT/ALT < 7 U/L (5-49)
== END | disposition home or self-care (01) ==
LOC: LAB 10:07
PROVIDERS: ATTEND Student in an Organized Health Care Education/Training Program
DX: Z01.89 Encounter for other specified special examinations (principal); E78.5 Hyperlipidemia, unspecified; N18.9 Chronic kidney disease, unspecified; E55.9 Vitamin D deficiency, unspecified; R73.9 Hyperglycemia, unspecified; E53.8 Deficiency of other specified B group vitamins